=== PATIENT | male | born 1960 | race Caucasian/White ===

== ENCOUNTER 2017-04-28 11:21 | Outpatient (CLI) | payer BC ==
--- NOTE | 2017-04-28 13:32 | RAD ---
SINGLE VIEW OF THE ABDOMEN: Comparison: None. History: Right flank pain. FINDINGS: Single view of the abdomen shows a nonspecific, nonobstructed bowel gas pattern. There are calcificat ions projecting over both kidneys. The largest is seen on the right measuring approximately 7 mm in s ize. No obvious calcifications are seen along the course of the ureters. IMPRESSION: Bilateral nephrolithiasis. POS: [facility]
== END 2017-04-28 11:22 | disposition home or self-care (01) ==
LOC: NAV RAD 11:21
PROVIDERS: ATTEND Family Medicine
DX: R10.9 Unspecified abdominal pain (principal); N20.0 Calculus of kidney
CPT/HCPCS: 74018

== ENCOUNTER 2018-11-11 08:41 | Outpatient (CLI) | payer BC ==
--- NOTE | 2018-11-11 09:00 | RAD ---
EXAM: 4 views of the right knee HISTORY: Knee pain COMPARISON: None FINDINGS: No knee effusion is seen. There is no evidence of acute fracture or dislocation. No signifi cant degenerative changes are seen. No soft tissue swelling is present. IMPRESSION: No evidence of acute osseous abnormality.
== END 2018-11-11 08:42 | disposition home or self-care (01) ==
LOC: NAV RAD 08:41
PROVIDERS: ATTEND Family Medicine
DX: M25.562 Pain in left knee (principal)

== ENCOUNTER 2022-06-02 09:45 | Outpatient (CLI) | payer BC | END 2022-06-02 09:46 | disposition home or self-care (01) | LOC: NAV RAD 09:45 | PROVIDERS: ATTEND Nurse Practitioner Family | DX: R10.9 Unspecified abdominal pain (principal); N20.0 Calculus of kidney | CPT/HCPCS: 74018 ==

== ENCOUNTER 2022-06-03 15:45 | Outpatient (CLI) | payer BC | END 2022-06-03 15:46 | disposition home or self-care (01) | LOC: NAV RAD 15:45 | PROVIDERS: ATTEND Nurse Practitioner Family | DX: R10.9 Unspecified abdominal pain (principal); N20.1 Calculus of ureter; N20.0 Calculus of kidney; K57.30 Diverticulosis of large intestine without perforation or abscess without bleeding | CPT/HCPCS: 74176 ==

== ENCOUNTER 2022-12-26 10:49 | Outpatient (CLI) | payer BC | END 2022-12-26 10:50 | disposition home or self-care (01) | LOC: NAV RAD 10:49 | PROVIDERS: ATTEND Nurse Practitioner Family | DX: U07.1 COVID-19 (principal) | CPT/HCPCS: 71046 ==

== ENCOUNTER 2024-11-21 10:33 | Outpatient (CLI) | payer BC ==
[2024-11-21 12:19] LABS: Glucose, Urine (Dipstick) 500 mg/dL (Negative); Leukocyte Negative (Negative); Protein, Urine (Dipstick) Negative (Neg-Trace); Specific Gravity, Urine 1.015 (1.005-1.030)
== END 2024-11-21 10:34 | disposition home or self-care (01) ==
LOC: NAV RAD 10:33
PROVIDERS: ATTEND Family Medicine
DX: N20.0 Calculus of kidney (principal)
CPT/HCPCS: 74018; 81003